=== PATIENT | male | born 1950 | race Native Hawaiian/Other Pacific Islander ===

== ENCOUNTER → 2017-12-04 | Outpatient (CLI) | payer MEDICARE ==
--- NOTE | 2017-12-05 18:03 | MR ---
EXAMINATION TYPE: MR iac wo/w con DATE OF EXAM: 12/04/2017 COMPARISON: NONE HISTORY: Acoustic nerve disorder, right side, Headache TECHNIQUE: Multiplanar, multisequence images of the brain and brainstem is performed without and with IV contras t, utilizing 7.5 mL intravenous Gadavist . FINDINGS: Diffusion weighted images demonstrate no evidence of a recent infarct or other diffusion ab normality. There is no extra-axial fluid collection. Scattered areas of T2/FLAIR hyperintensity are seen within the periventricular and subcortical white matter with the largest in the right frontal lo be on T2/FLAIR image 16 and 17 respectively measuring 6 mm. The ventricular system and cisternal spa bisi are mildly prominent compatible with age-related volume loss. Midline structures demonstrate normal morphology. The craniocervical junction appears within normal limits. Post contrast images demonstrate no abnormal enhancement. The dural venous sinuses appear pa tent. Mild mucosal thickening is seen within the ethmoid sinuses. The remaining visualized sinuses ar e clear and the globes are intact. The cerebellar pontine angles are unremarkable without mass. 7th and 8th cranial nerves bilaterally a re also unremarkable without abnormal enhancement or focal mass. Prepontine cistern is unremarkable. Fourth ventricle is nondilated. Major intracranial flow voids are maintained. Right vertebral artery is dominant. IMPRESSION: 1. No evidence of acoustic schwannoma/neuroma or 7/8th abnormal cranial nerve enhancement. No cerebel lar pontine angle mass. 2. 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 3. Minimal paranasal sinus disease. 4. No evidence of acute infarct or abnormal intracranial enhancement.
== END ==
LOC: RADMRIMAIN 08:58
PROVIDERS: ATTEND Otolaryngology
DX: R90.89 Other abnormal findings on diagnostic imaging of central nervous system (principal); H93.3X1 Disorders of right acoustic nerve
CPT/HCPCS: 82565; 84520; 70553; A9581